=== PATIENT | female | born 1950 | race Caucasian/White ===

== ENCOUNTER 2019-04-18 11:46 | Inpatient (IN) | payer MEDICARE, OTHER ==
[~2019-04-18] VITALS: Ht 157.5 cm; Wt 66.9 kg
[~2019-04-18 11:46] MED LIST: FLUT1DIS INH; LEVO750T21 PO; NO HOME MEDS; PRED20TA PO; SPIIN INH
[2019-04-18] MEDS ORDERED: normal saline 1000ml 1,000 ML IV ONE (12:35)
[2019-04-18 12:38] LABS: BASOPHILS # (AUTO) 0.1 X10'3 (0-0.2); BASOPHILS % (AUTO) 0.4 % (0-1); EOSINOPHILS # (AUTO) 0.3 X10'3 (0-0.9); EOSINOPHILS % (AUTO) 1.5 % (0-6); HEMATOCRIT 42.2 % (35.0-45.0); HEMOGLOBIN 14.1 g/dl (12.0-16.0); LYMPHOCYTES # (AUTO) 2.4 X10'3 (1.1-4.8); LYMPHOCYTES % (AUTO) 12.1 % (21-51); MEAN CORPUSCULAR HEMOGLOBIN 29.5 PG (27.0-31.0); MEAN CORPUSCULAR HGB CONC 33.3 g/dL (33.0-36.5); MEAN CORPUSCULAR VOLUME 88.5 FL (78-98); MEAN PLATELET VOLUME 9.4 FL (7.4-10.4); MONOCYTES % (AUTO) 10.3 % (2-12); NEUTROPHILS # (AUTO) 15.1 X10'3 (1.8-7.7); NEUTROPHILS % (AUTO) 75.7 % (42-75); PLATELET COUNT 301 X10'3 (140-440); RED BLOOD COUNT 4.77 X10'6 (4.20-5.60); RED CELL DISTRIBUTION WIDTH 12.9 % (11.5-14.5); WHITE BLOOD COUNT 19.9 X10'3 (4.5-11.0)
[2019-04-18] MEDS: CefTRIAXone/D5W-Rocephin 1gm 50 ML IV SCH (12:47)
[2019-04-18 12:51] LABS: ALANINE AMINOTRANSFERASE 20 U/L (12-78); ALBUMIN 3.6 G/DL (3.4-5.0); ALBUMIN/GLOBULIN RATIO 0.8 (1.1-1.5); ALKALINE PHOSPHATASE 107 IU/L (46-116); ANION GAP 6 (8-16); ASPARTATE AMINO TRANSFERASE 19 U/L (10-37); BILIRUBIN,TOTAL 0.5 MG/DL (0.1-1.0); BLOOD UREA NITROGEN 19 MG/DL (7-18); BUN/CREATININE RATIO 23.5 (6.6-38.0); CALCIUM 9.5 MG/DL (8.5-10.1); CHLORIDE 99 MMOL/L (99-107); CREATININE 0.81 MG/DL (0.40-0.90); GLUCOSE 110 MG/DL (70-104); SODIUM 137 MMOL/L (135-145); TOTAL CARBON DIOXIDE 32.3 MMOL/L (24-32); TOTAL PROTEIN 7.9 G/DL (6.4-8.2); eGFR 71 ML/MIN
[2019-04-18 12:52] LABS: POTASSIUM 3.4 MMOL/L (3.5-5.1)
[2019-04-18] MEDS ORDERED: iohexol 300mg/ml 100ml inj. ONE (13:21)
[2019-04-18] MEDS ORDERED: ALBU8.5H8 IH (14:45)
[2019-04-18] MEDS ORDERED: magnesium Cl slow-release 64mg tablet PO PRN (15:35)
[2019-04-18] MEDS ORDERED: magnesium 2GM in 50ml NS 50 ML IV PRN (15:35)
[2019-04-18] MEDS ORDERED: HYDROcodone/acetaminophen 10/325mg tab PO PRN (15:35)
[2019-04-18] MEDS ORDERED: HYDROcodone/acetaminophen 5mg/325mg tablet PO PRN (15:35)
[2019-04-18] MEDS ORDERED: diphenhydrAMINE 25mg capsule PO PRN (15:35)
[2019-04-18] MEDS ORDERED: ondansetron/PF 4mg/2ml inj IV PRN (15:35)
[2019-04-18] MEDS ORDERED: bisacodyl 10mg suppository rectal RC PRN (15:35)
[2019-04-18] MEDS ORDERED: potassium Cl 20 mEq SR tablet PO PRN (15:35)
[2019-04-18] MEDS ORDERED: acetaminophen 650mg rectal suppository RC PRN (15:35)
[2019-04-18] MEDS ORDERED: magnesium hydroxide 30ml (MOM) UD suspension PO PRN (15:35)
[2019-04-18] MEDS ORDERED: potassium CL 10mEq/100ml bag 100 ML IV PRN ×2 (15:35)
[2019-04-18] MEDS ORDERED: mag hydrox/Alum hydrox/simeth 30ml oral suspension PO PRN (15:35)
[2019-04-18] MEDS ORDERED: morphine 2 MG/ML inj. syringe IV PRN ×2 (15:35)
[2019-04-18] MEDS ORDERED: magnesium 4gm in 100ml NS 100 ML IV PRN (15:35)
[2019-04-18] MEDS ORDERED: methylPREDNISolone sod succ 125mg/2ml vial IV ONE (15:35)
[2019-04-18] MEDS ORDERED: diphenhydrAMINE 50 mg/ml inj IV PRN (15:35)
[2019-04-18] MEDS ORDERED: acetaminophen 325mg tablet PO PRN ×2 (15:35)
[2019-04-18] MEDS ORDERED: ipratropium 0.5 MG/2.5ML nebule IH PRN (15:40)
[2019-04-18 16:01] LABS: HEMOGLOBIN A1C 5.4 % (4.5-6.2)
[2019-04-18] MEDS: levoFLOXACIN-Levaquin 750MG/D5 150 ML IV SCH (16:11)
[2019-04-18] MEDS: normal saline 1000ml 1,000 ML IV SCH (16:14)
[2019-04-18 18:14] VITALS: BP 124/89
--- NOTE | 2019-04-18 18:15 | NUR ---
Patient in room [facility]. I have received report from geo MARTINEZ and had the opportunity to ask questions and assume patient care.
--- NOTE | 2019-04-18 18:45 | NUR ---
Received report from Mckenna Cuba from 1600 to be infused now per pharmacy.
--- NOTE | 2019-04-18 18:46 | NUR ---
patient settled in room Report given to Etta MARTINEZ
[2019-04-18] MEDS: vancomycin/NS 1 GM ADD-VANTAGE 250 ML IV SCH (18:56)
[2019-04-18 19:00] VITALS: BP 120/78
[2019-04-18] MEDS: ipratropium/albuterol 3ml nebule NEB SCH ×2 (19:18→23:20)
[2019-04-18] MEDS: potassium Cl 20 mEq SR tablet PO PRN ×2 (19:42→23:41)
[2019-04-18] MEDS: methylPREDNISolone sod succ 125mg/2ml vial IV SCH (19:46)
[2019-04-18] MEDS: K and/or MAG REPLACEMENT MC SCH (20:53)
[2019-04-18] MEDS ORDERED: temazepam 15mg capsule PO PRN (21:00)
[2019-04-18 21:37] LABS: CLARITY,URINE CLEAR (Clear); COLOR,URINE YELLOW (Yellow); GLUCOSE, URINE 250 mg/dl (Neg); KETONES,URINE TRACE mg/dl (Neg); LEUKOCYTE ESTERASE ,URINE TRACE (Neg); NITRITES, URINE NEGATIVE (Neg); OCCULT BLOOD,URINE MODERATE (Neg); PROTEIN,URINE NEGATIVE (Neg); UROBILINOGEN,URINE 0.2 E.U/dL (0.2-1.0)
[2019-04-18 21:45] LABS: BACTERIA,URINE FEW /HPF (Neg); RBC,URINE 0-2 /HPF (0-2); SQUAMOUS EPITHELIAL CELL,UR FEW /LPF (FEW); UA COLLECTION TYPE CLN CATCH MIDSTREAM; WBC,URINE 0-4 /HPF (0-4)
[2019-04-19] VITALS: BP 114/57
[2019-04-19] MEDS: normal saline 1000ml 1,000 ML IV SCH ×3 (02:07→21:35)
[2019-04-19] MEDS: methylPREDNISolone sod succ 125mg/2ml vial IV SCH ×4 (02:08→20:21)
[2019-04-19] MEDS: ipratropium/albuterol 3ml nebule NEB SCH ×6 (03:11→23:22)
[2019-04-19] MEDS: vancomycin/NS 1 GM ADD-VANTAGE 250 ML IV SCH ×2 (04:07→16:38)
[2019-04-19 05:16] LABS: BASOPHILS % (AUTO) 0.1 % (0-1); EOSINOPHILS % (AUTO) 0 % (0-6); HEMATOCRIT 36.2 % (35.0-45.0); HEMOGLOBIN 12.2 g/dl (12.0-16.0); LYMPHOCYTES # (AUTO) 0.7 X10'3 (1.1-4.8); LYMPHOCYTES % (AUTO) 6.3 % (21-51); MEAN CORPUSCULAR HEMOGLOBIN 29.8 PG (27.0-31.0); MEAN CORPUSCULAR HGB CONC 33.6 g/dL (33.0-36.5); MEAN CORPUSCULAR VOLUME 88.5 FL (78-98); MEAN PLATELET VOLUME 9.1 FL (7.4-10.4); MONOCYTES # (AUTO) 0.2 X10'3 (0-0.9); MONOCYTES % (AUTO) 1.9 % (2-12); NEUTROPHILS # (AUTO) 10.2 X10'3 (1.8-7.7); NEUTROPHILS % (AUTO) 91.7 % (42-75); PLATELET COUNT 234 X10'3 (140-440); RED BLOOD COUNT 4.09 X10'6 (4.20-5.60); RED CELL DISTRIBUTION WIDTH 12.7 % (11.5-14.5); WHITE BLOOD COUNT 11.1 X10'3 (4.5-11.0)
[2019-04-19 05:36] LABS: ALANINE AMINOTRANSFERASE 16 U/L (12-78); ALBUMIN 2.9 G/DL (3.4-5.0); ALBUMIN/GLOBULIN RATIO 0.8 (1.1-1.5); ALKALINE PHOSPHATASE 87 IU/L (46-116); ANION GAP 6 (8-16); ASPARTATE AMINO TRANSFERASE 10 U/L (10-37); BILIRUBIN,TOTAL 0.2 MG/DL (0.1-1.0); BLOOD UREA NITROGEN 15 MG/DL (7-18); BUN/CREATININE RATIO 23.1 (6.6-38.0); CHLORIDE 106 MMOL/L (99-107); CHOL/HDL RATIO 3.8 (0.00-4.99); CHOLESTEROL 132 MG/DL (0-200); CREATININE 0.65 MG/DL (0.40-0.90); GLUCOSE 140 MG/DL (70-104); HDL CHOLESTEROL 35 MG/DL (35-60); LDL CHOLESTEROL 85 MG/DL (50-100); PHOSPHORUS 2.3 MG/DL (2.3-4.5); POTASSIUM 4.3 MMOL/L (3.5-5.1); SODIUM 141 MMOL/L (135-145); TOTAL CARBON DIOXIDE 28.6 MMOL/L (24-32); TOTAL PROTEIN 6.5 G/DL (6.4-8.2); TRIGLYCERIDES 61 MG/DL (20-135); eGFR > 90 ML/MIN
--- NOTE | 2019-04-19 06:45 | NUR ---
Report given to Afua MARTINEZ
[2019-04-19 07:00] VITALS: BP 104/55
[2019-04-19] MEDS: K and/or MAG REPLACEMENT MC SCH ×2 (08:00→20:00)
--- NOTE | 2019-04-19 08:14 | NUR ---
Angio called to notify this nurse that lung biopsy will occur today due to scheduling. Pt. can eat today, but NPO after midnight. Hold all blood thinners.
[2019-04-19] MEDS: levoFLOXACIN-Levaquin 750MG/D5 150 ML IV SCH (09:27)
[2019-04-19] MEDS ORDERED: FLU VACC QS2019-20 36MOS UP/PF 60 MCG/0.5 ML SYRINGE IMVAC ONE (10:00)
[2019-04-19 12:09] VITALS: BP 136/66
[2019-04-19] MEDS: CefTRIAXone/D5W-Rocephin 1gm 50 ML IV SCH (12:35)
--- NOTE | 2019-04-19 13:07 | NUR ---
MD David aware pt. positive occult urine, no new orders at this time.
--- NOTE | 2019-04-19 15:13 | NUR ---
[place] [facility] [place]
--- NOTE | 2019-04-19 16:14 | NUR ---
PAGER ID: [phone] MESSAGE: Stefano العلي 355B Pt. 24 hour tele monitoring expiring. Would you like to renew order? if not we are going to remove monitor. Afua [id number]
--- NOTE | 2019-04-19 18:02 | NUR ---
Problems reprioritized. Patient report given, questions answered & plan of care reviewed with Etat MARTINEZ.
--- NOTE | 2019-04-19 18:20 | NUR ---
Patient in room [facility]. I have received report from Afua MARTINEZ and had the opportunity to ask questions and assume patient care.
[2019-04-19 20:00] VITALS: BP 115/61
[2019-04-20] VITALS (10 sets, daily range): BP systolic 124–143; BP diastolic 66–85
--- NOTE | 2019-04-20 00:50 | NUR ---
Patient started out on 1L o2 via NC and has now been weaned off completely and maintaining sats at around 92-93%.
[2019-04-20] MEDS: methylPREDNISolone sod succ 125mg/2ml vial IV SCH ×3 (01:26→14:13)
[2019-04-20] MEDS: normal saline 1000ml 1,000 ML IV SCH (01:26)
[2019-04-20] MEDS: ipratropium/albuterol 3ml nebule NEB SCH ×4 (02:59→15:00)
[2019-04-20] MEDS ORDERED: VANCOMYCIN LEVEL IV ONE (03:30)
[2019-04-20 03:51] LABS: BASOPHILS % (AUTO) 0.1 % (0-1); EOSINOPHILS % (AUTO) 0 % (0-6); HEMATOCRIT 35.6 % (35.0-45.0); LYMPHOCYTES # (AUTO) 1.2 X10'3 (1.1-4.8); LYMPHOCYTES % (AUTO) 5.9 % (21-51); MEAN CORPUSCULAR HEMOGLOBIN 29.4 PG (27.0-31.0); MEAN CORPUSCULAR HGB CONC 33.7 g/dL (33.0-36.5); MONOCYTES % (AUTO) 4.8 % (2-12); NEUTROPHILS # (AUTO) 18.4 X10'3 (1.8-7.7); NEUTROPHILS % (AUTO) 89.2 % (42-75); PLATELET COUNT 269 X10'3 (140-440); RED BLOOD COUNT 4.09 X10'6 (4.20-5.60); RED CELL DISTRIBUTION WIDTH 12.9 % (11.5-14.5); WHITE BLOOD COUNT 20.6 X10'3 (4.5-11.0)
[2019-04-20] MEDS: vancomycin/NS 1 GM ADD-VANTAGE 250 ML IV SCH (03:55)
[2019-04-20 04:01] LABS: ALANINE AMINOTRANSFERASE 19 U/L (12-78); ALBUMIN 2.9 G/DL (3.4-5.0); ALBUMIN/GLOBULIN RATIO 0.9 (1.1-1.5); ALKALINE PHOSPHATASE 83 IU/L (46-116); ANION GAP 5 (8-16); ASPARTATE AMINO TRANSFERASE 9 U/L (10-37); BILIRUBIN,TOTAL 0.2 MG/DL (0.1-1.0); BLOOD UREA NITROGEN 17 MG/DL (7-18); BUN/CREATININE RATIO 21.3 (6.6-38.0); CALCIUM 9.3 MG/DL (8.5-10.1); CHLORIDE 107 MMOL/L (99-107); GLUCOSE 131 MG/DL (70-104); POTASSIUM 4.2 MMOL/L (3.5-5.1); SODIUM 141 MMOL/L (135-145); TOTAL CARBON DIOXIDE 29.1 MMOL/L (24-32); TOTAL PROTEIN 6.3 G/DL (6.4-8.2); eGFR 72 ML/MIN
[2019-04-20 04:02] LABS: MAGNESIUM 1.9 MG/DL (1.5-2.4); PHOSPHORUS 2.7 MG/DL (2.3-4.5); VANCOMYCIN,TROUGH 10.2 UG/ML (6.0-14.0)
--- NOTE | 2019-04-20 06:30 | NUR ---
Problems reprioritized. Patient report given, questions answered & plan of care reviewed with Cindy RN.
[2019-04-20] MEDS: K and/or MAG REPLACEMENT MC SCH (08:00)
[2019-04-20] MEDS ORDERED: lactobacillus rhamnosus 10,000 MMU CELLS/CAPSULE PO SCH (08:00)
[2019-04-20] MEDS: levoFLOXACIN-Levaquin 750MG/D5 150 ML IV SCH (08:56)
--- NOTE | 2019-04-20 12:05 | NUR ---
Dr. Heredia on unit consenting pt. for procedure/ lung biopsy. Pt. with be leaving unit to go down to IR.
[2019-04-20] MEDS ORDERED: midazolam 2 mg/2 ml injection ONE (12:27)
[2019-04-20] MEDS ORDERED: fentaNYL/PF 50MCG/1 ML 2ML syringe ONE (12:27)
--- NOTE | 2019-04-20 12:29 | NUR ---
PT. ENCOURAGED TO USE IS AND FLUTTER. STATED THAT SHE DID NOT WANT TO AND REFUSED. Addendum: 04/20/19 at 1235 by Afua Raman RN Amended: Links added.
--- NOTE | 2019-04-20 12:32 | NUR ---
ENCOURAGED TO AMBULATE. PT STATED, "NO. I DO NOT WANT TO. I DONT FEEL UP TO IT." EDUCATED PT. ON THE IMPORTANCE OF AMBULATION/EXERCISE. REFUSED TEACHING WELL. Addendum: 04/20/19 at 1235 by Afua Raman RN Amended: Links added.
[2019-04-20] MEDS ORDERED: sodium chloride 0.45% 1,000 ML IV SCH (13:22)
[2019-04-20] MEDS ORDERED: morphine 4 MG/ML inj SYRINge IV PRN (13:25)
--- NOTE | 2019-04-20 15:57 | NUR ---
PAGER ID: [phone] MESSAGE: Stefano العلي 355B 2 CXR negative for pneumothorax. Pt. eager to discharge. Afua [id number]
[2019-04-20] MEDS ORDERED: VANCOmycin 1250MG/NS 250ml Bag 250 ML IV SCH (16:00)
[2019-04-20] MEDS ORDERED: CLIN150C2 PO (16:24)
[2019-04-20] MEDS ORDERED: LEVO750T46 PO (16:24)
[2019-04-20] MEDS ORDERED: LACT1CAP26 PO (16:24)
--- NOTE | 2019-04-20 16:37 | NUR ---
PAGER ID: [phone] MESSAGE: Stefano العلي 355B pt. on solumedrol - would like to titrate steroids. Pt. would also like nebulizer tx- has nebulizer machine already.wants prescription for Kirk for pain from biopsy procedure and note for work till mon. Afua
[2019-04-20] MEDS ORDERED: PRED10TA23 PO (16:39)
[2019-04-20] MEDS ORDERED: IPRA3AMP31 IH (16:41)
--- NOTE | 2019-04-20 17:30 | NUR ---
Pt. discharged in a stable condition. Daughter here to drive her home. Post biopsy care education provided, much smoking cessation education, respiratory exercises education, medications reviewed, with pt. Pt aware to follow with [facility] and PCP for pathology result and outpatient care. IV DC'd, pressure bandage applied, no s/sx bleeding noted. Pt. escorted to private vehicle downstairs by hospital staff. Took all her belonging with her.
[2019-04-22] MEDS ORDERED: VANCOMYCIN LEVEL IV ONE (03:30)
== END 2019-04-20 17:45 | disposition home or self-care (01) | DRG 871 ==
LOC: ER 11:47 → ED HOLD 15:35 → SUR 3N 17:59
PROVIDERS: ADMIT Internal Medicine; ATTEND Family Medicine
PROC: BW241ZZ Computerized Tomography (CT Scan) of Chest and Abdomen using Low Osmolar Contrast (ICD-10-PCS; 2019-04-18)
PROC: 3E02340 Introduction of Influenza Vaccine into Muscle, Percutaneous Approach (ICD-10-PCS; principal; 2019-04-19)
PROC: 0BBG3ZX Excision of Left Upper Lung Lobe, Percutaneous Approach, Diagnostic (ICD-10-PCS; 2019-04-20)
DX: A41.9 Sepsis, unspecified organism (principal); J18.9 Pneumonia, unspecified organism; C34.12 Malignant neoplasm of upper lobe, left bronchus or lung; J44.0 Chronic obstructive pulmonary disease with (acute) lower respiratory infection; E87.2 Acidosis; R04.2 Hemoptysis; J44.1 Chronic obstructive pulmonary disease with (acute) exacerbation; F17.210 Nicotine dependence, cigarettes, uncomplicated; E87.6 Hypokalemia; Z81.8 Family history of other mental and behavioral disorders; Z82.5 Family history of asthma and other chronic lower respiratory diseases; Z87.11 Personal history of peptic ulcer disease; Z90.49 Acquired absence of other specified parts of digestive tract; Z23 Encounter for immunization; Z91.048 Other nonmedicinal substance allergy status; Z71.6 Tobacco abuse counseling
CPT/HCPCS: 32405; 36415; 71045; 71046; 71260; 77012; 80053; 80061; 80202; 81001; 83036; 83605; 83735; 84100; 85025; 87040; 87070; 87081; 87088; 88305; 88341; 88342; 93306; 94640; 94667; 94668; 94760; 96374; 99285; G0378; J0696; J1956; J2250; J2930; J3010; J3370; J7030; Q2037; Q9967

== ENCOUNTER 2019-06-14 07:10 | Day surgery (SDC) | payer MEDICARE, MEDICAID ==
[~2019-06-14] VITALS: Ht 157.5 cm; Wt 67.0 kg
[2019-06-14] VITALS (15 sets, daily range): BP systolic 98–130; BP diastolic 54–79
[~2019-06-14 07:10] MED LIST changes: +ALBU8.5H8 IH; +IPRA3AMP31 IH; +LACT1CAP26 PO; -LEVO750T21 PO; -NO HOME MEDS; -PRED20TA PO
[2019-06-14] MEDS ORDERED: normal saline 1000ml 1,000 ML IV PRN (07:35)
[2019-06-14] MEDS ORDERED: IPRA3AMP31 IH (07:48)
[2019-06-14] MEDS ORDERED: ADV50100 INH (07:48)
[2019-06-14] MEDS ORDERED: TIOT18CA3 (07:48)
[2019-06-14 08:06] LABS: ALBUMIN 3.2 G/DL (3.4-5.0); ANION GAP 2 (8-16); BASOPHILS # (AUTO) 0.1 X10'3 (0-0.2); BASOPHILS % (AUTO) 0.6 % (0-1); BLOOD UREA NITROGEN 15 MG/DL (7-18); BUN/CREATININE RATIO 24.6 (6.6-38.0); CHLORIDE 107 MMOL/L (99-107); CREATININE 0.61 MG/DL (0.40-0.90); EOSINOPHILS # (AUTO) 0.7 X10'3 (0-0.9); EOSINOPHILS % (AUTO) 7.6 % (0-6); GLUCOSE 86 MG/DL (70-104); HEMATOCRIT 39.9 % (35.0-45.0); HEMOGLOBIN 13.4 g/dl (12.0-16.0); LYMPHOCYTES # (AUTO) 1.8 X10'3 (1.1-4.8); LYMPHOCYTES % (AUTO) 19.9 % (21-51); MEAN CORPUSCULAR HEMOGLOBIN 28.9 PG (27.0-31.0); MEAN CORPUSCULAR HGB CONC 33.7 g/dL (33.0-36.5); MEAN CORPUSCULAR VOLUME 85.9 FL (78-98); MEAN PLATELET VOLUME 8.1 FL (7.4-10.4); MONOCYTES # (AUTO) 0.9 X10'3 (0-0.9); MONOCYTES % (AUTO) 9.8 % (2-12); NEUTROPHILS # (AUTO) 5.7 X10'3 (1.8-7.7); NEUTROPHILS % (AUTO) 62.1 % (42-75); PLATELET COUNT 246 X10'3 (140-440); POTASSIUM 3.9 MMOL/L (3.5-5.1); RED BLOOD COUNT 4.64 X10'6 (4.20-5.60); RED CELL DISTRIBUTION WIDTH 13.4 % (11.5-14.5); SODIUM 141 MMOL/L (135-145); TOTAL CARBON DIOXIDE 31.6 MMOL/L (24-32); WHITE BLOOD COUNT 9.3 X10'3 (4.5-11.0); eGFR > 90 ML/MIN
[2019-06-14] MEDS ORDERED: fentaNYL/PF 50MCG/1 ML 2ML syringe IV PRN (08:25)
[2019-06-14] MEDS ORDERED: midazolam 2 mg/2 ml injection IV PRN (08:25)
[2019-06-14] MEDS ORDERED: LIDOcaine 1% (10mg/ml) 2ml vial SQ ONE (08:25)
[2019-06-14] MEDS ORDERED: fentaNYL/PF 50MCG/1 ML 2ML syringe ONE (08:40)
[2019-06-14] MEDS ORDERED: midazolam 2 mg/2 ml injection ONE (08:52)
[2019-06-14] MEDS ORDERED: sodium chloride 0.45% 1,000 ML IV SCH (09:53)
[2019-06-14] MEDS ORDERED: HYDROcodone/acetaminophen 5mg/325mg tablet PO PRN (09:55)
--- NOTE | 2019-06-14 11:29 | NUR ---
pt sitting up in bed, eating soup/lunch tray. vs stable as charted. will continue to monitor.
== END 2019-06-14 13:27 | disposition home or self-care (01) ==
LOC: SSTAY O 07:10
PROVIDERS: ATTEND Radiology Vascular & Interventional Radiology
DX: R91.8 Other nonspecific abnormal finding of lung field (principal); F17.210 Nicotine dependence, cigarettes, uncomplicated; Z85.118 Personal history of other malignant neoplasm of bronchus and lung; Z91.09 Other allergy status, other than to drugs and biological substances; Z88.8 Allergy status to other drugs, medicaments and biological substances; Z79.899 Other long term (current) drug therapy; J44.9 Chronic obstructive pulmonary disease, unspecified; K57.30 Diverticulosis of large intestine without perforation or abscess without bleeding; R06.02 Shortness of breath; R05 Cough
CPT/HCPCS: 32405; 36415; 71045; 77012; 80048; 85025; 85610; J2250; J3010; 47000; 99152; 99153